=== PATIENT | male | born 1965 | race Caucasian/White ===

== ENCOUNTER 2019-05-01 09:37 | Day surgery (SDC) | payer MEDICARE, MEDICAID ==
[~2019-05-01 09:37] MED LIST: Buffered Lidocaine 1% SYRIN* 1 ML/SYRINGE INTRADERM ONE; Dexamethasone IV* 4 MG/ML 1 ML (4 MG) IV SLOW PU ONE; Famotidine TAB* 20 MG PO ONE; Lactated Ringers 1000 ML Bag* 1,000 ML IV SCH; Lidocaine 2% PF * 5 ML VIAL ONE; Midazolam* 1 MG/ML 5 ML VIAL (5 MG) ONE; Propofol* 10 MG/ML 20 ML BTL ONE; fentaNYL* 50 MCG/ML 2 ML VIAL (100 MCG VIAL) ONE
[2019-05-01] MEDS ORDERED: Lidocaine 1% INJ* 10 MG/ML 30 ML SDV ONE (09:45)
[2019-05-01] MEDS ORDERED: EPINEPHRINE 1 MG/ML 1 ML VIAL ONE (09:45)
[2019-05-01] MEDS ORDERED: Dexamethasone IV* 4 MG/ML 1 ML (4 MG) ONE ×2 (09:45→10:21)
[2019-05-01] MEDS ORDERED: Bupivacaine 0.25% EPI 200,000* 30 ML SDV ONE (09:45)
[2019-05-01] MEDS ORDERED: ceFAZolin 2 GM in NS PREMIX(*) 2 GM/100 ML BAG IVPB ONE (10:21)
[2019-05-01] MEDS ORDERED: Buffered Lidocaine 1% SYRIN* 1 ML/SYRINGE INTRADERM ONE (10:21)
[2019-05-01] MEDS ORDERED: Famotidine TAB* 20 MG ONE (10:21)
[2019-05-01] MEDS ORDERED: Ketorolac INJ* 30 MG/ML 1 ML VIAL IV PRN (12:39)
[2019-05-01] MEDS ORDERED: fentaNYL* 50 MCG/ML 2 ML VIAL (100 MCG VIAL) IV PRN (12:39)
[2019-05-01] MEDS ORDERED: Acetaminophen TAB* 325 MG PO PRN (12:39)
[2019-05-01] MEDS ORDERED: DiMENhydriNATE IV* 50 MG/ML VIAL IV PUSH PRN (12:39)
[2019-05-01] MEDS ORDERED: Naloxone* 0.4 MG/ML 1 ML VIAL IV PRN (12:39)
[2019-05-01] MEDS ORDERED: HYDROcodone/ACETAMIN 5-325 MG* 1 TAB PO PRN (12:39)
[2019-05-01] MEDS ORDERED: Ondansetron INJ* 2 MG/ML VIAL ONE (12:44)
--- NOTE | 2019-05-01 14:04 | OP ---
DATE OF OPERATION: 05/01/19 - [facility] DATE OF : 69 ATTENDING PHYSICIAN: Demarco Elder MD ANESTHESIA: General. PRE-OP DIAGNOSES: 1. Left knee lateral meniscus tear. 2. Foreign body, left middle finger. POST-OP DIAGNOSES: 1. Left knee lateral meniscus tear. 2. Chondromalacia, medial femoral condyle, left knee. 3. Foreign body of the finger. PROCEDURES: 1. Left knee arthroscopy. 2. Partial lateral meniscectomy. 3. Chondroplasty of medial femoral condyle. 4. Excision of foreign body, left middle finger. ESTIMATED BLOOD LOSS: Negligible. COMPLICATIONS: None. SUMMARY: Mr. Bowers is a 54-year-old male who has had continued troubles with his left knee. He had undergone an ACL reconstruction with Dr. Fang in 2011, and had undergone two other surgeries with him as well - one for a partial lateral meniscectomy in 2013 and then a plica resection later in 2013. These had worked well where the knee finally was feeling better and he was getting around without troubles. He has unfortunately been having troubles once again with pain along the outer side of the knee. There is a catch and a clicking sensation which occurs as he bends and straightens the knee. Once the knee pops , his pain is more significant and he reports its almost like a rubber band sensation as he moves. After walking for more than 15 minutes, he has to get off the knee. He unfortunately had a spinal stimulator, so we were unable to get an MRI and a CT scan was not very helpful. I discussed with him that a knee arthroscopy should work well, so that we can get inside to see what was going on and clean up a probable meniscus tear. He reports that when we were there, we could remove a foreign body as he believes he has a piece of glass along the ulnar side of the DIP joint of his middle finger. Risks of surgery such as infection, scar formation, stiffness, DVT, pulmonary embolism, and not getting off the foreign body out were some of the risks discussed. He had been declared medically optimized and wished to proceed. DESCRIPTION OF PROCEDURE: The patient was brought to the OR and general anesthesia was established. Left knee and left hand were prepped and then draped. Skin over the portal sites was infiltrated using 0.25% Marcaine with epinephrine and a standard lateral portal was made first using his old scar. This was a little more medial and I came in to the knee and could not easily pass under the patella. This was not forced and camera came into the notch. Under direct vision, medial portal was made and this was about a centimeter from the medial border of the patellar tendon, as the other portal was nearly 3 cm from that spot. Probe was introduced, it could be seen where he had some very specific damage on the medial femoral condyle and how the cartilage was peeling away a little bit. Shaver was introduced and used the smooth this out, so that the cartilage would no longer catch. Under body of medial meniscus looked good and moving into the notch, he had a little bit of exuberant scar and some of this was taken down, so would not encroach on the edges. Lateral compartment was entered. It could be seen where he had some fraying and damage along the meniscus. There is also a very specific underbody pair of the posterior meniscus from about the popliteus fossa most of the way towards the root insertion. Then, curved shaver was used to gently debride this. Coming up into the lateral gutter, I could see his EndoButton and then coming up top, he still had a bit of a plica, even though he under-went a plica resection. The plica was also gently debrided. Second look revealed no additional pathology and the portal sites were closed using 4-0 nylon sutures. Knee was then injected with a total of 30 cc of 0.25% Marcaine with epinephrine and 8 mg dexamethasone. Sterile dressing was applied. Attention was turned to the left middle finger. He appeared to have quite a bit of callus right in that area and just incising the callus, I felt what I thought was a piece of foreign body directly in the middle of that callus. This was sharply excised and then sent for pathology. He still though appeared to have a central punctate area and just using the tip of the 15 blade, this was gently debrided by scraping sideways and I was able to get a droplet of purulent fluid with squeezing it. I was unsure if there was a foreign body that came out from there at that time was well. This was then developed a little bit more, so I incised longitudinally and came a little bit deeper and I believe there had been another foreign body deeper that I then scraped out. Some of the callus was again resected from the edge, so that I could further clean out the area. Once I had fully cleaned out that spot, I squeezed and then nice clean bleeding was obtained. 2x2 was placed, a little bit of Coban directly over that spot. The patient was then extubated in the OR and was stable on transfer to the recovery room. DISPOSITION/DISCHARGE SUMMARY: Mr. Bowers is a 54-year-old male who just underwent a left knee arthroscopy and removal of foreign body from his left middle finger. He tolerated the procedure well. There were no complications. He is here in the recovery room. Once he wakes a bit more from his general anesthesia, can tolerate p.o., his pain well controlled, he can void, he will be discharged home. Script for Tat[place] will be e-scribed in. He has instructions to keep his dressing clean, dry, and intact for the next 3 days, but after that may take his dressing down, cover his sutures with bandage, may shower, wash and get them wet, but should not soak them. I would like to see him in the office in approximately 10 days, remove his sutures, and make sure he is doing well. If there are any problems or if anything odd should occur, there are instructions to give the office a call. [id number] #: [id number] MAAME
[2019-05-01] MEDS ORDERED: oxyCODONE/Acetamin 5/325 MG* TAB ONE (14:43)
[2019-05-01] MEDS ORDERED: HYDROcodone/ACETAMIN 5-325 MG* 1 TAB ONE (14:45)
[2019-05-01 15:25] VITALS: BP 123/94
== END 2019-05-01 15:36 | disposition home or self-care (01) ==
LOC: OR 09:37
PROVIDERS: ATTEND Orthopaedic Surgery
DX: M23.252 Derangement of posterior horn of lateral meniscus due to old tear or injury, left knee (principal); M79.645 Pain in left finger(s); M60.242 Foreign body granuloma of soft tissue, not elsewhere classified, left hand; Z18.9 Retained foreign body fragments, unspecified material; I10 Essential (primary) hypertension; E78.5 Hyperlipidemia, unspecified; F17.290 Nicotine dependence, other tobacco product, uncomplicated; K21.9 Gastro-esophageal reflux disease without esophagitis; M19.90 Unspecified osteoarthritis, unspecified site; M54.9 Dorsalgia, unspecified
CPT/HCPCS: 88302; A9270-GY; J0690; J1100; J2250; J2405; J2704; J3010